=== PATIENT | female | born 1980 | race Caucasian/White ===

== ENCOUNTER 2017-06-07 14:32 | Outpatient (RCR) | payer BC | END 2017-06-08 08:28 | LOC: MKS.ESL.PT 14:32 | DX: S83.512A Sprain of anterior cruciate ligament of left knee, initial encounter (principal) ==

== ENCOUNTER 2017-08-26 15:45 | Outpatient (RCR) | payer BC | END 2017-08-27 08:01 | disposition still patient (30) | LOC: MKS.ESL.PT 15:45 | DX: S83.512D Sprain of anterior cruciate ligament of left knee, subsequent encounter (principal); Z98.890 Other specified postprocedural states ==

== ENCOUNTER 2017-10-29 13:30 | Outpatient (RCR) | payer BC | END 2017-11-17 | LOC: MKS.ESL.PT | DX: Z47.89 Encounter for other orthopedic aftercare (principal); Z98.890 Other specified postprocedural states ==